=== PATIENT | female | born 1960 | race Caucasian/White ===

== ENCOUNTER 2016-03-22 14:13 | Emergency (ER) | payer MEDICARE, OTHER ==
[~2016-03-22] VITALS: Ht 162.6 cm; Wt 54.5 kg
[~2016-03-22 14:13] MED LIST: BENZ1TAB10 PO; CITA20TA9 PO; HALO5TAB23 PO; LAMO100T13 PO; LURA80 PO; QUET300T2 PO; QUET50TA PO
[2016-03-22] MEDS ORDERED: SODIUM CHLORIDE 0.9% 1,000 ML IV ONE (15:00)
[2016-03-22] MEDS ORDERED: MORPHINE SULFATE 4 MG/ML SYRINGE IVP ONE (15:15)
[2016-03-22 15:19] LABS: BASOPHILS % (AUTO) 0.1 % (0.0-2.0); EOSINOPHILS % (AUTO) 0 % (1.0-6.0); HEMOGLOBIN 12.8 g/dL (12.0-16.0); LYMPHOCYTES # (AUTO) 1.6 K/uL (1.0-4.8); LYMPHOCYTES % (AUTO) 6.4 % (22.0-44.0); MEAN CORPUSCULAR HEMOGLOBIN 30.7 pg (26.0-34.0); MEAN CORPUSCULAR HGB CONC 32.9 G/dL (31.0-37.0); MEAN CORPUSCULAR VOLUME 93 fL (80-100); MONOCYTES # (AUTO) 1.2 K/uL (0.1-1.0); MONOCYTES % (AUTO) 4.8 % (2.0-9.0); NEUTROPHILS # (AUTO) 22.4 K/uL (1.8-7.7); PLATELET COUNT (AUTO) 263 K/uL (150-450); RED BLOOD CELL COUNT(AUTO) 4.18 MIL/uL (4.00-5.20); RED CELL DISTRIBUTION WIDTH 16.6 % (11.5-14.5); WHITE BLOOD COUNT (AUTO) 25.3 K/uL (4.5-11.0)
[2016-03-22 15:34] LABS: NEUTROPHILS % (AUTO) 88.7 % (40.0-70.0)
[2016-03-22 15:35] LABS: CALCIUM, TOTAL 9.3 mg/dL (8.8-10.5); CREATININE 1.05 mg/dL (0.60-1.30); POTASSIUM 4.6 mmol/L (3.5-5.1)
[2016-03-22 15:41] LABS: ALBUMIN 2.8 g/dL (3.4-5.0); BILIRUBIN,TOTAL 0.3 mg/dL (0.1-1.0); TOTAL PROTEIN, SERUM 7.7 g/dL (6.4-8.2)
[2016-03-22 15:43] LABS: LACTIC ACID 1.5 mmol/L (0.4-2.0)
[2016-03-22] MEDS ORDERED: CLINDAMYCIN 900 MG/D5% WATER 50 ML IV ONE (16:00)
[2016-03-22 18:47] LABS: APPEARANCE,URINE CLEAR (CLEAR); GLUCOSE, URINE (UA) NEGATIVE (NEGATIVE); KETONES,URINE TRACE mg/dL (NEGATIVE); LEUKOCYTE ESTERASE ,URINE NEGATIVE (NEGATIVE); OCCULT BLOOD,URINE LARGE (NEGATIVE); PROTEIN,URINE NEGATIVE (NEGATIVE)
[2016-03-22 19:10] VITALS: BP 117/68
== END 2016-03-22 19:42 | disposition home or self-care (01) ==
LOC: EMS 14:14
DX: L03.116 Cellulitis of left lower limb (principal); L97.929 Non-pressure chronic ulcer of unspecified part of left lower leg with unspecified severity; L97.919 Non-pressure chronic ulcer of unspecified part of right lower leg with unspecified severity; F17.210 Nicotine dependence, cigarettes, uncomplicated; F14.90 Cocaine use, unspecified, uncomplicated; Z88.1 Allergy status to other antibiotic agents
CPT/HCPCS: 36415; 80053; 81001; 83605; 83690; 84484; 85025; 87040; 96365; 96375; 99285; J2270; J3490; J7030

== ENCOUNTER 2016-11-07 04:31 | Emergency (ER) | payer MEDICARE, OTHER ==
[~2016-11-07] VITALS: Ht 157.5 cm; Wt 43.0 kg
[2016-11-07 04:45] VITALS: BP 144/86
[2016-11-07] MEDS ORDERED: HYDR-4031 PO (04:52)
== END 2016-11-07 06:02 | disposition home or self-care (01) ==
LOC: EMS 04:32
DX: L97.911 Non-pressure chronic ulcer of unspecified part of right lower leg limited to breakdown of skin (principal); R44.0 Auditory hallucinations; F15.10 Other stimulant abuse, uncomplicated; F32.9 Major depressive disorder, single episode, unspecified; F20.9 Schizophrenia, unspecified; F17.210 Nicotine dependence, cigarettes, uncomplicated; F12.90 Cannabis use, unspecified, uncomplicated; F14.90 Cocaine use, unspecified, uncomplicated; Z88.8 Allergy status to other drugs, medicaments and biological substances
CPT/HCPCS: 99285

== ENCOUNTER 2023-03-27 16:01 | Inpatient (IN) | payer MEDICARE, MEDICAID ==
[~2023-03-27] VITALS: Ht 162.6 cm; Wt 88.9 kg
[~2023-03-27 16:01] MED LIST changes: -BENZ1TAB10 PO; +BENZ1TAB84 PO; +CITA-107 PO; -CITA20TA9 PO; +HYDR-4808 PO; -LAMO100T13 PO; +LAMO100T16 PO; -LURA80 PO; +LURA80TA2 PO
[2023-03-27 18:49] LABS: COVID AG,FIA SOURCE NASAL SWAB
[2023-03-27 19:02] LABS: SARS-COV2 (COVID) ANTIGEN,FIA Negative (Negative)
[2023-03-27 19:03] LABS: ALCOHOL, URINE DRUG SCREEN NEGATIVE (NEGATIVE); AMPHET/METH SCREEN,URINE NEGATIVE (NEGATIVE); BARBITURATE SCREEN, URINE NEGATIVE (NEGATIVE); BENZODIAZEPINES SCREEN,URINE NEGATIVE (NEGATIVE); CANNABINOID SCREEN,URINE POSITIVE (NEGATIVE); COCAINE SCREEN,URINE NEGATIVE (NEGATIVE); METHADONE SCREEN, URINE NEGATIVE (NEGATIVE); OPIATE SCREEN,URINE NEGATIVE (NEGATIVE); PHENCYCLIDINE SCREEN,URINE NEGATIVE (NEGATIVE)
[2023-03-27 19:07] LABS: EOSINOPHILS % (AUTO) 0.1 % (1.0-6.0); HEMATOCRIT 37.2 % (36-46); HEMOGLOBIN 12.4 g/dL (12.0-16.0); LYMPHOCYTES # (AUTO) 2.8 K/uL (1.0-4.8); LYMPHOCYTES % (AUTO) 33.7 % (22.0-44.0); MEAN CORPUSCULAR HEMOGLOBIN 31.9 pg (26.0-34.0); MEAN CORPUSCULAR HGB CONC 33.3 G/dL (31.0-37.0); MEAN CORPUSCULAR VOLUME 96 fL (80-100); MONOCYTES # (AUTO) 0.9 K/uL (0.1-1.0); MONOCYTES % (AUTO) 10.3 % (2.0-9.0); NEUTROPHILS # (AUTO) 4.6 K/uL (1.8-7.7); NEUTROPHILS % (AUTO) 54.9 % (40.0-70.0); PLATELET COUNT (AUTO) 202 K/uL (150-450); RED BLOOD CELL COUNT(AUTO) 3.88 MIL/uL (4.00-5.20); WHITE BLOOD COUNT (AUTO) 8.4 K/uL (4.5-11.0)
[2023-03-27 19:19] LABS: ANION GAP 7 mmol/L (8-16); CARBON DIOXIDE 29 mmol/L (22-29); CHLORIDE 103 mmol/L (98-107); CREATININE 0.61 mg/dL (0.60-1.30); GLOMERULAR FILTR. RATE CALC > 60 mL/min (>60); GLUCOSE,RANDOM 87 mg/dL (70-110); POTASSIUM 3.7 mmol/L (3.5-5.1); SODIUM SERUM 139 mmol/L (136-145); UREA NITROGEN, BLOOD 21 mg/dL (7-18)
[2023-03-27 19:23] LABS: ALANINE AMINOTRANSFERASE 16 U/L (12-78); ALBUMIN 3.2 g/dL (3.4-5.0); ALCOHOL, BLOOD (SERUM) < 3 mg/dL (0-10); ALKALINE PHOSPHATASE 79 U/L (46-116); ASPARTATE AMINOTRANSFERASE 17 U/L (15-37); BILIRUBIN,TOTAL 0.2 mg/dL (0.1-1.0); TOTAL PROTEIN, SERUM 6.4 g/dL (6.4-8.2)
[2023-03-27] MEDS ORDERED: ZOLPIDEM TARTRATE 10 MG TABLET PO PRN (23:15)
[2023-03-28 03:26] VITALS: BP 129/79; PULSE 84; RESP 18; TEMP 97.5; O2SAT 100
[2023-03-28] MEDS ORDERED: NICOTINE 7 MG/24 HOUR PATCH TD PRN (06:30)
[2023-03-28] MEDS: HALOPERIDOL 5 MG TABLET PO PRN (08:16)
[2023-03-28] MEDS: LORazepam 2 MG TABLET PO PRN (08:16)
[2023-03-28 08:25] VITALS: BP 99/55; PULSE 70; RESP 16; TEMP 97.9; O2SAT 99
[2023-03-28] MEDS: MULTIVITAMINS WITH MINERALS, THERAPEUTIC TABLET PO SCH (09:43)
[2023-03-28] MEDS: CHOLECALCIFEROL (VIT D3) 1,000 UNITS [25 MCG] TABLET PO SCH (09:43)
[2023-03-28] MEDS ORDERED: DIVA-112 PO (11:20)
[2023-03-28] MEDS ORDERED: OLAN5TAB77 PO (11:38)
[2023-03-28] MEDS ORDERED: PERP4TAB10 PO (11:38)
[2023-03-28] MEDS ORDERED: FURO40TA5 PO (11:38)
[2023-03-28] MEDS ORDERED: VENL75TA73 PO (11:38)
[2023-03-28] MEDS ORDERED: BENZ0.5T6 PO (11:38)
[2023-03-28] MEDS ORDERED: APIX5TAB PO (11:38)
[2023-03-28] MEDS ORDERED: QUET50TA24 PO (11:38)
[2023-03-28] MEDS: RisperiDONE 2 MG TABLET PO SCH (11:42)
[2023-03-28] MEDS: DIVALPROEX SODIUM 500 MG DR TABLET PO SCH (11:58)
[2023-03-28] MEDS: APIXABAN 5 MG TABLET PO SCH (15:30)
[2023-03-28] MEDS ORDERED: IBUPROFEN 400 MG TABLET PO PRN (15:45)
[2023-03-28] MEDS ORDERED: GuaiFENesin/D-METHORPHAN [SUGAR-FREE] 200-20MG/10 ML SYRUP UDCUP PO PRN (15:45)
[2023-03-28] MEDS ORDERED: ONDANSETRON HCL 4 MG TABLET PO PRN (15:45)
[2023-03-28] MEDS ORDERED: MAGNESIUM HYDROXIDE SUSPENSION 30 ML UDCUP PO PRN (15:45)
[2023-03-28] MEDS ORDERED: DOCUSATE SODIUM 100 MG CAPSULE PO PRN (15:45)
[2023-03-28] MEDS ORDERED: CloNIDine HCL 0.1 MG TABLET PO PRN (15:45)
[2023-03-28] MEDS ORDERED: ACETAMINOPHEN 325 MG TABLET PO PRN (15:45)
[2023-03-28] MEDS ORDERED: NICOTINE 14 MG/24 HOUR PATCH TD PRN (15:45)
[2023-03-28] MEDS ORDERED: PETROLATUM,WHITE 28 GM JELLY TP PRN (15:45)
[2023-03-28] MEDS ORDERED: MAG HYDROX/ALUMINUM HYD/SIMETH ES 30 ML SUSPENSION UDCUP PO PRN (15:45)
[2023-03-28] MEDS ORDERED: ALBUTEROL SULFATE HFA 90 MCG/PUFF 8 GM INHALER IH PRN (15:45)
[2023-03-28] MEDS: FUROSEMIDE 40 MG TABLET PO SCH (16:26)
[2023-03-28 20:10] VITALS: BP 115/67; PULSE 77; RESP 17; TEMP 97.6
[2023-03-28] MEDS: MELATONIN 5 MG TABLET PO SCH (20:15)
[2023-03-29 08:12] VITALS: BP 110/61; PULSE 80; RESP 18; TEMP 98; O2SAT 99
[2023-03-29 20:00] VITALS: BP 123/63; PULSE 83; RESP 18; TEMP 98
[2023-03-30 09:47] LABS: THYROID STIMULATING HORMONE 7.15 uIU/mL (0.36-3.74)
[2023-03-30 09:54] VITALS: BP 117/68; PULSE 78; RESP 18; TEMP 97.8; O2SAT 98
[2023-03-30 20:29] VITALS: BP 129/54; PULSE 97; RESP 16; TEMP 97.1; O2SAT 97
[2023-03-31] MEDS: LEVOTHYROXINE SODIUM 50 MCG TABLET PO SCH (12:15)
[2023-03-31 14:30] VITALS: BP 105/56; PULSE 76; RESP 13; TEMP 97.3; O2SAT 97
[2023-03-31 20:17] VITALS: BP 123/76; PULSE 113; RESP 17; TEMP 97.8; O2SAT 98
[2023-04-01 08:07] VITALS: BP 123/84; PULSE 86; RESP 18; TEMP 98; O2SAT 97
[2023-04-01 09:16] LABS: CHOL/HDL RATIO 2.4 (3.9-5.7); FREE T4 (FREE THYROXINE) 1.15 ng/dL (0.76-1.46)
[2023-04-01 20:00] VITALS: BP 118/82; PULSE 106; RESP 18; TEMP 97.9
[2023-04-01 21:00] VITALS: BP 118/82; PULSE 86; RESP 17; TEMP 97.9; O2SAT 97
[2023-04-02 01:46] VITALS: RESP 18; TEMP 97.9
[2023-04-02 08:21] VITALS: BP 126/71; PULSE 84; RESP 16; TEMP 97.9; O2SAT 96
[2023-04-02 20:06] VITALS: BP 129/70; PULSE 89; RESP 18; TEMP 98.2; O2SAT 95
[2023-04-02] MEDS: RisperiDONE 1 MG TABLET PO SCH (20:08)
[2023-04-03 09:00] VITALS: BP 125/65; PULSE 99; RESP 18; TEMP 97.8; O2SAT 99
[2023-04-03] MEDS: LOPERAMIDE HCL 2 MG CAPSULE PO PRN (09:59)
[2023-04-03 20:35] VITALS: BP 105/69; PULSE 65; RESP 19; TEMP 97.1; O2SAT 99
[2023-04-04 13:30] VITALS: BP 99/62; PULSE 91; RESP 18; TEMP 98.2; O2SAT 98
[2023-04-04 20:07] VITALS: BP 134/86; PULSE 100; RESP 18; TEMP 97.9; O2SAT 98
[2023-04-05 08:11] VITALS: BP 132/60; PULSE 100; RESP 16; TEMP 97.6; O2SAT 98
[2023-04-05 20:48] VITALS: BP 118/69; PULSE 94; RESP 18; TEMP 97.7
[2023-04-06 08:07] VITALS: BP 120/78; PULSE 97; RESP 18; TEMP 98; O2SAT 98
[2023-04-06 21:06] VITALS: BP 133/71; PULSE 102; RESP 18; TEMP 97.6; O2SAT 99
[2023-04-07 09:35] VITALS: BP 123/71; PULSE 91; RESP 16; TEMP 97.7; O2SAT 100
[2023-04-07 20:14] VITALS: BP 127/68; PULSE 88; RESP 18; TEMP 98.5; O2SAT 94
[2023-04-08 09:26] VITALS: BP 144/79; PULSE 91; RESP 17; TEMP 97.6; O2SAT 99
[2023-04-08 21:08] VITALS: BP 124/68; PULSE 100; RESP 18; TEMP 98.1; O2SAT 99
[2023-04-09 08:17] VITALS: BP 130/67; PULSE 83; RESP 16; TEMP 97.9; O2SAT 99
[2023-04-09 21:26] VITALS: BP 135/88; PULSE 99; RESP 18; TEMP 97; O2SAT 98
[2023-04-10 08:32] VITALS: BP 127/59; PULSE 96; RESP 16; TEMP 97.4; O2SAT 97
[2023-04-10] MEDS: RisperiDONE ER SUSPENSION 120 MG PRE-FILLED SYRINGE SQ SCH (16:01)
[2023-04-10 20:29] VITALS: BP 122/69; PULSE 92; RESP 17; TEMP 97.8; O2SAT 98
[2023-04-10] MEDS: DIVALPROEX SODIUM 250 MG DR TABLET PO SCH (20:46)
[2023-04-11 08:26] VITALS: BP 109/59; PULSE 84; RESP 16; TEMP 97.2; O2SAT 100
[2023-04-11 20:26] VITALS: BP 131/77; PULSE 80; RESP 18; TEMP 98; O2SAT 98
[2023-04-12 08:19] VITALS: BP 144/72; PULSE 74; RESP 16; TEMP 97.9; O2SAT 99
[2023-04-12 20:45] VITALS: BP 125/76; PULSE 82; RESP 16; TEMP 98
[2023-04-13 08:13] VITALS: BP 117/68; PULSE 75; RESP 18; TEMP 97.8; O2SAT 99
[2023-04-13 22:01] VITALS: BP 127/75; PULSE 79; RESP 16; TEMP 97; O2SAT 98
[2023-04-14 08:05] VITALS: BP 128/78; PULSE 84; RESP 16; TEMP 97.6; O2SAT 98
[2023-04-14 20:00] VITALS: BP 101/60; PULSE 71; RESP 16; TEMP 97.5; O2SAT 98
[2023-04-15 08:18] VITALS: BP 130/68; PULSE 80; RESP 16; TEMP 97.8; O2SAT 99
[2023-04-15] MEDS: INFLUENZA VIRUS VACCINE QVS 2023-24 (6MO+)/PF 60 MCG/0.5 ML SYRINGE IM. ONE (15:19)
[2023-04-15] MEDS: PNEUMOCOCCAL VACCINE POLYVALENT 0.5 ML SYRINGE [PPSV23] IM. ONE (15:20)
[2023-04-15 21:30] VITALS: BP 136/72; PULSE 76; RESP 17; TEMP 97.6; O2SAT 98
[2023-04-16 08:18] VITALS: BP 108/65; PULSE 85; RESP 18; TEMP 98; O2SAT 99
[2023-04-16 20:00] VITALS: BP 150/103; PULSE 74; RESP 18; TEMP 97.5; O2SAT 96
[2023-04-17 08:16] VITALS: BP 135/66; PULSE 86; RESP 16; TEMP 97.6; O2SAT 100
[2023-04-17 20:11] VITALS: BP 142/84; PULSE 85; RESP 18; TEMP 97.5; O2SAT 98
[2023-04-18 08:12] VITALS: BP 125/83; PULSE 74; RESP 17; TEMP 98; O2SAT 98
[2023-04-18] MEDS ORDERED: DIVA-111 PO (16:25)
[2023-04-18] MEDS ORDERED: LEVO50TA4 PO (16:47)
== END 2023-04-18 18:30 | DRG 885 ==
LOC: EMS 16:03 → B3A 03-28 00:25
PROVIDERS: ADMIT Psychiatry & Neurology Psychiatry; ATTEND Psychiatry & Neurology Psychiatry
PROC: GZHZZZZ Group Psychotherapy (ICD-10-PCS; principal; 2023-03-28)
PROC: GZ56ZZZ Individual Psychotherapy, Supportive (ICD-10-PCS; 2023-03-28)
DX: F25.0 Schizoaffective disorder, bipolar type (principal); F12.10 Cannabis abuse, uncomplicated; I10 Essential (primary) hypertension; F32.A Depression, unspecified; Z20.822 Contact with and (suspected) exposure to COVID-19; I89.0 Lymphedema, not elsewhere classified; R94.6 Abnormal results of thyroid function studies; G47.00 Insomnia, unspecified; G40.909 Epilepsy, unspecified, not intractable, without status epilepticus; Z79.899 Other long term (current) drug therapy; Z87.891 Personal history of nicotine dependence
CPT/HCPCS: 80053; 80061; 80164; 80307; 83036; 84439; 84443; 85025; 87081; 99285; G0480; Q9967